=== PATIENT | female | born 1995 | race Hispanic/Latino ===

== ENCOUNTER 2021-06-10 08:19 | Observation (INO) | payer OTHER ==
[~2021-06-10] VITALS: Ht 152.4 cm; Wt 52.2 kg
[2021-06-10 08:20] VITALS: BP 105/56
[2021-06-10 09:20] LABS: APPEARANCE,URINE Clear (CLEAR); BILIRUBIN,URINE Negative (NEGATIVE); COLOR,URINE Yellow (YELLOW); GLUCOSE, URINE (UA) Negative (NEGATIVE); KETONES,URINE Negative (NEGATIVE); LEUKOCYTE ESTERASE ,URINE Small (NEGATIVE); NITRATE,URINE Negative (NEGATIVE); OCCULT BLOOD,URINE Negative (NEGATIVE); PROTEIN,URINE 300 mg/dL (NEGATIVE)
[2021-06-10] MEDS ORDERED: LACTATED RINGERS 1000ML 1,000 ML IV ONE (09:51)
[2021-06-10 09:53] LABS: RBC,URINE 0-1 /HPF (0-1)
[2021-06-10 09:54] LABS: BACTERIA,URINE Few /HPF (None Seen)
[2021-06-10] MEDS ORDERED: LACTATED RINGERS 1000ML 1,000 ML IV PRN (10:00)
[2021-06-10] MEDS ORDERED: LACTATED RINGERS 1000ML IV SCH (10:00)
== END 2021-06-10 18:16 ==
LOC: EDH 08:19 → LDH 08:37
PROVIDERS: ADMIT Specialist; ATTEND Specialist
DX: O36.8120 Decreased fetal movements, second trimester, not applicable or unspecified (principal); Z20.822 Contact with and (suspected) exposure to COVID-19; Z3A.21 21 weeks gestation of pregnancy; W19.XXXA Unspecified fall, initial encounter; Y93.89 Activity, other specified; Y92.89 Other specified places as the place of occurrence of the external cause
CPT/HCPCS: 76805; 81001; 87426; 96360; 96361; G0378 ×9; G0379; J7120